=== PATIENT | female | born 1960 | race African-American/Black ===

== ENCOUNTER 2021-01-08 21:08 | Emergency (ER) | payer MEDICARE, MEDICAID ==
[~2021-01-08] VITALS: Ht 170.2 cm; Wt 102.1 kg
[2021-01-08 21:13] VITALS: BP 132/77
[2021-01-08 22:23] LABS: Urine Bacteria NONE SEEN /hpf (None Seen); Urine Blood 2+ /uL (Negative); Urine Specific Gravity 1.007 (1.001-1.035); Urine WBC 272 /hpf (0 - 5)
[2021-01-08] MEDS ORDERED: ACETAMINOPHEN 500 MG TAB PO ONE (23:00)
== END 2021-01-08 23:09 | disposition home or self-care (01) ==
LOC: ER 21:08
DX: N39.0 Urinary tract infection, site not specified (principal); E66.9 Obesity, unspecified; Z68.35 Body mass index [BMI] 35.0-35.9, adult
CPT/HCPCS: 81001

== ENCOUNTER → 2021-04-30 | Outpatient (CLI) | payer MEDICARE, MEDICAID | END | disposition home or self-care (01) | LOC: LAB 13:24 | PROVIDERS: ATTEND Nurse Practitioner Family | DX: Z20.822 Contact with and (suspected) exposure to COVID-19 (principal) | CPT/HCPCS: C9803; U0003 ==